=== PATIENT | female | born 1955 | race Caucasian/White ===

== ENCOUNTER 2020-12-06 10:22 | Emergency (ER) | payer OTHER, SELFPAY ==
[2020-12-06 10:29] VITALS: BP 144/77; PULSE 72; RESP 18; TEMP 36.8; O2SAT 96; BMI 24.0
--- NOTE | 2020-12-06 10:34 | ED_ITS ---
HPI - Extremity Injury (Lower) General: Chief Complaint: Extremity Injury, Lower Stated Complaint: L LEG WOUND/LACERATION Time Seen by Provider: 12/06/20 10:27 Source: patient Mode of arrival: ambulatory Limitations: no limitations History of Present Illness: HPI Narrative: Patient is a nice 65-year-old female who presents to ED today with a complaint of left lower extremity pain. Patient states she was building a raised flower bed yesterday when she accidentally tripped and fell. She sustained abrasions down her left sierra. Tetanus is up-to-date. She is complaining of pain to her lower leg and around her ankle. She is ambulatory with a limp. No other injuries or complaints at this time. complaint: leg injury and ankle injury Onset (ago): day(s) (yesterday) Place: home Severity: moderate Relieving factors: immobilization Exacerbating factors: weight bearing Context: fall and direct blow Associated symptoms: Reports no associated symptoms Other symptoms: none Review of Systems Const: Denies: fever(s) Musc: Reports: extremity pain (L lower leg) and joint pain (L ankle); Denies: neck pain, back pain, extremity swelling or joint swelling Skin/Breast: Reports: other (abrasions) Neuro: Denies: numbness in extremities or sensory changes PFSH ED PFSH: Medical History (Updated 12/06/20 @ 11:10 by KASSANDRA Kramer) Cystitis cystica History of kidney stones Urinary incontinence in female Surgical History (Updated 11/02/19 @ 07:40 by Aldo Hicks MD) H/O carpal tunnel repair H/O knee surgery left H/O: hysterectomy Family History (Updated 10/29/19 @ 16:29 by Maria T Hyatt LPN) Father , at ag e83 Heart disease Diabetes Mother Hypertension Social History (Updated 10/29/19 @ 16:31 by Maria T Hyatt LPN) Smoking and tobacco status: former smoker Alcohol intake: current Alcohol intake frequency: holidays/special occasions only Marital status: Current occupational status: retired History of recent travel: No Physical Exam Const: COMMON NORMALS: no acute distress and no limitations GENERAL APPEARANCE: cooperative Extremity: NARRATIVE EXTREMITY EXAM: superficial abrasions throughout L a nterior lower leg-erythema localized to wound edges; TTP of L lower leg and medial/lateral malleoli of ankle-mild swelling noted; DP/PT pulses normal; brisk cap refill; sensory intact GENERAL: Yes normal exam except as noted Skin: NARRATIVE SKIN EXAM: see extremity assessment-otherwise normal skin exam Course Vital Signs: Vital signs: Vital Signs Temperature 98.2 F 12/06/20 10:29 Pulse Rate 68 12/06/20 11:20 Respiratory Rate 18 12/06/20 11:20 Blood Pressure 114/63 12/06/20 11:20 Pulse Oximetry 98 12/06/20 11:20 MDM - Extremity Injury (Lower) Imaging Data^: XR L ankle: Radiologist's impression: [facility] [address] [place] [id number] XRay Report Signed Patient: Paloma Cotton Unit #: [id number] : 1955 Age/Sex: 65 / F ADM Date: 12/06/20 Loc: ER Room/Bed: Attending Dr: Ordering Provider/Ordering MD: Flor Marroquin Date of Service: 12/06/20 Procedure(s): XR ankle LT min 3V* 30403 Accession Number(s): [id number] Report Number: [id number] PROCEDURE INFORMATION: Exam: XR Left Ankle Exam date and time: 12/06/2020 10:52 AM Age: 65 years old Clinical indication: Injury or trauma; Fall; Blunt trauma; Ankle; Left TECHNIQUE: Imaging protocol: XR Left ankle. Views: 3 or more views. COMPARISON: No relevant prior studies available. FINDINGS: Bones/joints: Normal. Soft tissues: Normal. XR/XR ankle LT min 3V* [id number] IMPRESSION: No acute findings. Dictated By: Brian Toro Signed By: Brian Toro Signed Date/Time: 12/06/20 1149 DD/ 1147 XR L tib/fib: Radiologist's impression: [facility] [address] [place] [id number] XRay Report Signed Patient: Paloma Cotton Unit #: [id number] : 1955 Age/Sex: 65 / F ADM Date: 12/06/20 Loc: ER Room/Bed: Attending Dr: Ordering Provider/Ordering MD: Flor Marroquin Date of Service: 12/06/20 Procedure(s): XR tibia fibula LT 2V 68555 Accession Number(s): [id number] Report Number: [id number] PROCEDURE INFORMATION: Exam: XR Left Tibia and Fibula Exam date and time: 12/06/2020 10:52 AM Age: 65 years old Clinical indication: Injury or trauma; Fall; Blunt trauma; Lower leg; Left TECHNIQUE: Imaging protocol: XR Left tibia and fibula. Views: 2 views. COMPARISON: No relevant prior studies available. FINDINGS: Bones/joints: Normal. Soft tissues: Normal. XR/XR tibia fibula LT 2V [id number] IMPRESSION: No acute findings. Dictated By: Brian Toro Signed By: Brian Toro Signed Date/Time: 12/06/20 114 DD/ 1147 Discharge Plan Discharge Patient Disposition: Home Clinical Impression: Left ankle sprain Qualifiers: Encounter type: initial encounter Involved ligament of ankle: unspecified ligament Qualified Code(s): S93.402A - Sprain of unspecified ligament of left ankle, initial encounter Abrasion of left leg Qualifiers: Encounter type: initial encounter Qualified Code(s): S80.812A - Abrasion, left lower leg, initial encounter Condition: Stable Discharge Orders: Discharge ED (Routine); Ordered 12/06/20 Ordered By: Flor Marroquin Referrals: Juliane De Anda, [employer] [Primary Care Provider] - Patient Instructions: Ankle Sprain (ED), Abrasion (ED) Coding Level of Care Code ED In Service Educator for Chg Fwd Exam Expanded Problem Focused
[2020-12-06 11:20] VITALS: BP 114/63; PULSE 68; RESP 18; O2SAT 98
== END 2020-12-06 11:15 | disposition home or self-care (01) ==
PROVIDERS: Emergency Provider Physician Assistant; PCP Nurse Practitioner Family
DX: S93.402A Sprain of unspecified ligament of left ankle, initial encounter (principal); S80.812A Abrasion, left lower leg, initial encounter; Z87.891 Personal history of nicotine dependence; W01.0XXA Fall on same level from slipping, tripping and stumbling without subsequent striking against object, initial encounter
CPT/HCPCS: 73590; 73610; 99283

== ENCOUNTER 2020-12-07 10:11 | Outpatient (CLI) | payer OTHER, SELFPAY ==
--- NOTE | 2020-12-07 10:14 | US_ITS ---
WS: [id number] ULTRASOUND SOFT TISSUES LEFT groin. HISTORY: LEFT GROIN ?HERNIA/INGUINAL PAIN COMPARISON: None available. TECHNIQUE: 2-D and color Doppler imaging is submitted. Ultrasound evaluation of the LEFT groin in the area of interest demonstrates no abnormality. No evide nce for peristalsing loop of bowel extending into the LEFT groin. There is no soft tissue mass. There are several small benign-appearing lymph nodes. US/US soft tissue/extremity [id number] IMPRESSION: Negative ultrasound LEFT groin. No hernia or mass identified.
== END 2020-12-07 10:12 | disposition home or self-care (01) ==
LOC: RAD 10:14
PROVIDERS: PCP Nurse Practitioner Family; Visit Provider Nurse Practitioner Family
DX: R10.32 Left lower quadrant pain (principal)
CPT/HCPCS: 76882

== ENCOUNTER 2020-12-15 15:20 | Outpatient (CLI) | payer OTHER, SELFPAY ==
--- NOTE | 2020-12-15 15:56 | XR_ITS ---
WS: [id number] LEFT ANKLE: 3 VIEW(S) TECHNIQUE: AP, oblique(s) and lateral. HISTORY: LEFT ANKLE PAIN, UNSPECIFIED CHRONICITY COMPARISON: 12/06/2010 Well-circumscribed tiny avulsion fracture medial malleolus with adjacent soft tissue edema. New since 05/10/2019. No joint effusion or widening of the ankle mortise. No significant degenerative changes at the joint spaces. Large amount of soft tissue edema around the ankle. XR/XR ankle LT min 3V* [id number] IMPRESSION: 1. Tiny age-indeterminate avulsion fracture medial malleolus. 2. Diffuse soft tissue edema.
== END 2020-12-15 15:21 | disposition home or self-care (01) ==
PROVIDERS: PCP Nurse Practitioner Family
DX: R60.0 Localized edema (principal); S82.52XA Displaced fracture of medial malleolus of left tibia, initial encounter for closed fracture; X58.XXXA Exposure to other specified factors, initial encounter
CPT/HCPCS: 73610

== ENCOUNTER 2020-12-17 14:06 | Outpatient (CLI) | payer OTHER, SELFPAY | END 2020-12-17 14:07 | disposition home or self-care (01) | LOC: SPT 14:06 | PROVIDERS: PCP Nurse Practitioner Family; Visit Provider Podiatrist Foot & Ankle Surgery | DX: Z46.89 Encounter for fitting and adjustment of other specified devices (principal); S82.53XD Displaced fracture of medial malleolus of unspecified tibia, subsequent encounter for closed fracture with routine healing; S93.409D Sprain of unspecified ligament of unspecified ankle, subsequent encounter; X58.XXXD Exposure to other specified factors, subsequent encounter | CPT/HCPCS: 97760; L1902 ==

== ENCOUNTER → 2021-02-19 10:07 | Outpatient (BNVA) | payer OTHER, SELFPAY | PROVIDERS: PCP Nurse Practitioner Family; Visit Provider Podiatrist Foot & Ankle Surgery | DX: S93.409A Sprain of unspecified ligament of unspecified ankle, initial encounter (principal); X58.XXXA Exposure to other specified factors, initial encounter | CPT/HCPCS: 73610 ==

== ENCOUNTER 2021-03-11 15:40 | Outpatient (CLI) | payer OTHER, SELFPAY ==
--- NOTE | 2021-03-11 16:00 | MR_ITS ---
WS: [id number] MRI LEFT ANKLE without CONTRAST. COMPARISON: Radiographs 02/19/2021 Multiplanar, multisequence imaging is performed without contrast. Very minimal amount of increased marrow signal in the distal fibula. No acute fracture. No marrow jamia ma at the medial malleolus. No acute fractures are identified. There is mild narrowing of the tibiota lar joint space with loss of cartilage. No osteochondral lesion is identified. No fracture at the bas e of the metatarsals. There is a small subchondral cyst in the distal cuboid. Scaphoid and cuneiforms are negative. Distal Achilles tendon is normal caliber. There is some increased T2 signal in Kager fat pad and flui d within the retrocalcaneal bursa. The edema extends to abut the Achilles tendon but the Achilles ten don appears intact. Increased fluid extends over a length of 5.5 cm . Ligaments and tendons around the ankle appear to be intact. MR/MR ankle LT wo con* [id number] IMPRESSION: 1. No acute fracture. No marrow edema at the medial malleolus. 2. Moderate amount of edema and abnormal signal in Krager fat pad and associat ed retrocalcaneal bursitis. Achilles tendon appears intact although the abnorma l signal does extend to about the Achilles tendon. Consider prior injury as a p ossible etiology. These changes in the fat pad can be associated with edema, tr auma, hemorrhage, infection or arthritis.
== END 2021-03-11 15:41 | disposition home or self-care (01) ==
LOC: RADSHAW 15:44
PROVIDERS: PCP Nurse Practitioner Family; Visit Provider Podiatrist Foot & Ankle Surgery
DX: S82.52XA Displaced fracture of medial malleolus of left tibia, initial encounter for closed fracture (principal); X58.XXXA Exposure to other specified factors, initial encounter; R60.0 Localized edema
CPT/HCPCS: 73721

== ENCOUNTER 2021-06-07 14:23 | Outpatient (CLI) | payer OTHER, SELFPAY ==
--- NOTE | 2021-06-07 | CT_ITS ---
WS: [id number] LDCT LUNG CANCER SCREENING HISTORY: INITIAL SCREENING-HISTORY OF TOBACCO USE TECHNIQUE: Axial imaging performed from the apices to 1 cm below the costophrenic angles. Coronal and sagittal reformats are submitted with axial MIP series. All CT scans at [facility] use at least one of these dose optimization techniques: automated exposure control; mA and/or kV adjustment per patient size (includes targeted exams where dose is matched to clinical indication); or iterativ e reconstruction. DLP: 55.77 mGy.cm DIvol: 1.58 mGy COMPARISON: None available. Diagnostic quality: Satisfactory Lung Nodules: No pulmonary nodule or mass. No endobronchial lesions. Lungs: Moderate hyperinflation. Interstitial thickening at the lung bases related to emphysema. Heart: Mild enlargement. No effusion. Other findings: Mild atherosclerosis aorta. Prior cholecystectomy. CT/CT lung screening [id number] IMPRESSION: LUNG-RADS: 1-Negative FOLLOW UP: OTHER FINDINGS (S MODIFIER): None.
--- NOTE | 2021-06-07 | XR_ITS ---
WS: [id number] SCREENING DEXA SCAN [facility] CLINICAL INFORMATION: AGE RELATED OSTEOPOROSIS WITHOUT CURRENT PATHOLOGICAL FRACTU COMPARISON: None. FINDINGS: The L1-L4 bone mineral density measures 1.102 g/cm2. This corresponds to a T score score of -0.7 and Z score of 1.0. Left femoral neck bone mineral density measures 0.842 g/cm2. This corresponds to a T score of -1.3 an d Z score of -0.1. Right femoral neck bone mineral density measures 0.840 g/cm2. This corresponds to a T score -1.3of an d Z score of -0.1. Mean femoral neck bone mineral density measures 0.841 g/cm2. This corresponds to a T score of -1.3 an d Z score of -0.1. XR/XR DEXA axial skeleton* [id number] IMPRESSION: Normal bone mineralization in the lumbar spine. Osteopenia in the femoral necks . Patient's FRAX calculated 10 year probability for major osteoporotic fracture i s 9.8 % and osteoporotic hip fracture is 1.3%.
== END 2021-06-07 14:24 | disposition home or self-care (01) ==
LOC: RAD 14:29
PROVIDERS: PCP Nurse Practitioner Family; Visit Provider Nurse Practitioner Family
DX: Z12.2 Encounter for screening for malignant neoplasm of respiratory organs (principal); Z87.891 Personal history of nicotine dependence; M81.0 Age-related osteoporosis without current pathological fracture; I70.0 Atherosclerosis of aorta; Z90.49 Acquired absence of other specified parts of digestive tract
CPT/HCPCS: 71271; 77080

== ENCOUNTER → 2022-05-19 08:36 | Outpatient (BNVA) | payer MEDICARE, SELFPAY | PROVIDERS: PCP Family Medicine; Visit Provider Family Medicine | DX: R35.0 Frequency of micturition (principal); M79.645 Pain in left finger(s); R94.6 Abnormal results of thyroid function studies; Z87.891 Personal history of nicotine dependence | CPT/HCPCS: 80053; 81000; 84439; 84443; 84481 ==

== ENCOUNTER 2022-09-15 08:21 | Outpatient (CLI) | payer MEDICARE, SELFPAY ==
--- NOTE | 2022-09-15 08:30 | CT_ITS ---
WS: [id number] LDCT LUNG CANCER SCREENING TECHNIQUE: Noncontrast CT of the chest with coronal and sagittal reformatted images. CLINICAL INFORMATION: lung cancer screening COMPARISON: CT June 07, 2021 DLP: 75.02 mGy.cm DIvol: Mean CTDIvol: 1.60 (mGy) All CT scans at [facility] use at least one of these dose optimization techniques: automat ed exposure control; mA and/or kV adjustment per patient size (includes targeted exams where dose is matched to clinical indication); or iterative reconstruction. FINDINGS: Calcific granuloma RIGHT upper lobe. Fibrosis in the lung apices. No suspicious pulmonary p arenchymal abnormalities. No pleural fluid. A few tree-in-bud infiltrates in the LEFT upper lobe. Normal caliber thoracic aorta. Aortic calcification. No mediastinal or hilar lymphadenopathy. Mild co ronary calcification. No axillary lymphadenopathy. Cholecystectomy clips. Adrenal glands are normal. Tiny esophageal hiatal hernia. CT/CT lung screening [id number] IMPRESSION: LUNG-RADS: 1-Negative FOLLOW UP: 12 Month: Continue annual screening with LDCT
== END 2022-09-15 08:22 | disposition home or self-care (01) ==
LOC: RAD 08:24
PROVIDERS: PCP Family Medicine; Visit Provider Family Medicine
DX: Z12.2 Encounter for screening for malignant neoplasm of respiratory organs (principal); Z87.891 Personal history of nicotine dependence
CPT/HCPCS: 71271

== ENCOUNTER → 2023-01-19 14:47 | Outpatient (BNVA) | payer MEDICARE, SELFPAY | PROVIDERS: PCP Family Medicine; Visit Provider Family Medicine | DX: R53.83 Other fatigue (principal) | CPT/HCPCS: 80053; 82607; 83735; 84439; 84443; 84481; 85025 ==

== ENCOUNTER → 2023-02-16 10:01 | Outpatient (BNVA) | payer MEDICARE, SELFPAY | PROVIDERS: PCP Family Medicine; Visit Provider Family Medicine | DX: R53.83 Other fatigue (principal) | CPT/HCPCS: 82607 ==

== ENCOUNTER → 2023-03-17 09:49 | Outpatient (BNVA) | payer MEDICARE, SELFPAY | PROVIDERS: PCP Family Medicine; Visit Provider Family Medicine | DX: E53.8 Deficiency of other specified B group vitamins (principal) | CPT/HCPCS: 82607; 85025; 85610 ==

== ENCOUNTER → 2023-07-17 16:22 | Outpatient (BNVA) | payer MEDICARE, SELFPAY | PROVIDERS: PCP Family Medicine; Visit Provider Family Medicine | DX: R53.83 Other fatigue (principal); M85.80 Other specified disorders of bone density and structure, unspecified site | CPT/HCPCS: 80053; 82306; 82607; 83735; 84439; 84443; 85025 ==

== ENCOUNTER → 2023-10-31 16:15 | Outpatient (BNVA) | payer MEDICARE, SELFPAY | PROVIDERS: PCP Family Medicine; Visit Provider Family Medicine | DX: R53.83 Other fatigue (principal); R17 Unspecified jaundice; R94.6 Abnormal results of thyroid function studies; E53.8 Deficiency of other specified B group vitamins | CPT/HCPCS: 80053; 82607; 83735; 84443; 85025 ==

== ENCOUNTER → 2023-11-01 | Outpatient (BNVA) | payer MEDICARE, SELFPAY | PROVIDERS: PCP Family Medicine; Visit Provider Family Medicine | DX: R94.6 Abnormal results of thyroid function studies | CPT/HCPCS: 84439; 84481 ==